=== PATIENT | male | born 1940 | race Caucasian/White ===

== ENCOUNTER 2017-07-10 05:54 | Day surgery (SDC) | payer MEDICARE ==
[~2017-07-10] VITALS: Ht 167.6 cm; Wt 89.1 kg
[~2017-07-10 05:54] MED LIST: ADV250 IH; ALBU8.5H8 IH; DICL1OS OU; FAMO20 PO; GABA-531 PO; GLIP10 PO; HYDR25TA PO; LEVO25TA9 PO; LOSA50TA37 PO; MONT10TA21 PO; PRED10 PO; SIMV-259 PO; XALA2.5OS OU
[2017-07-10] MEDS ORDERED: BENZOCAINE 20% 50 MCG/SPRAY 57 GM TP ONE (05:55)
[2017-07-10] MEDS ORDERED: LIDOCAINE HCL 4% 50 ML SOLUTION TP ONE (05:55)
[2017-07-10] MEDS ORDERED: LIDOCAINE HCL 2% 30 ML JELLY TP ONE (05:55)
[2017-07-10] MEDS ORDERED: SODIUM CHLORIDE 0.9% 1,000 ML IV ONE ×2 (06:26→07:00)
[2017-07-10 06:58] LABS: GLUCOMETER DEV NAME(LOC) SDS 5; GLUCOSE,POINT OF CARE 103 MG/DL (70-110)
[2017-07-10] MEDS ORDERED: FentaNYL CITRATE-PF 100 MCG/2 ML VIAL ONE (07:47)
[2017-07-10] MEDS ORDERED: MIDAZOLAM HCL 2 MG/2 ML VIAL ONE (07:47)
[2017-07-10] MEDS ORDERED: MethylPREDNISolone SOD SUCC 125 MG/2 ML VIAL IVP ONE (08:45)
[2017-07-10] MEDS ORDERED: MethylPREDNISolone SOD SUCC 125 MG/2 ML VIAL ONE (08:45)
[2017-07-10] MEDS ORDERED: OXYGEN THERAPY IH SCH (20:00)
== END 2017-07-10 09:50 | disposition home or self-care (01) ==
LOC: SURGERY 05:54
PROVIDERS: ATTEND Internal Medicine Critical Care Medicine
DX: J38.4 Edema of larynx (principal); B37.0 Candidal stomatitis; J84.111 Idiopathic interstitial pneumonia, not otherwise specified; F10.21 Alcohol dependence, in remission; I10 Essential (primary) hypertension; E03.9 Hypothyroidism, unspecified; E11.9 Type 2 diabetes mellitus without complications; E78.00 Pure hypercholesterolemia, unspecified; G47.30 Sleep apnea, unspecified; Z87.891 Personal history of nicotine dependence; Z98.890 Other specified postprocedural states; Z79.84 Long term (current) use of oral hypoglycemic drugs; Z79.899 Other long term (current) drug therapy
CPT/HCPCS: 31623; 31624; 71045; 82962; 87015; 87070; 87147; 87205; 87220; 88108; 88312; 94640; J2250; J2930; J3010; J7030